=== PATIENT | male | born 2000 | race Two or more races ===

== ENCOUNTER 2023-09-14 00:07 | Emergency (ER) | payer OTHER ==
[2023-09-14 00:31] VITALS: RESP 18; TEMP 98.3; BMI 32.3
[2023-09-14] MEDS ORDERED: ACETAMINOPHEN INJECTION 100 ML IVPB ONE (01:29)
[2023-09-14 01:33] LABS: BASO % 0.4 % (0-2.0); EOS % 2.3 % (0-4.5); HEMATOCRIT 43.1 % (35.4-49); HEMOGLOBIN 14.5 GM/dL (11.7-16.9); LYMPH % 41.1 % (8-40); MCH 25.6 pg (25.7-33.7); MCHC 33.6 g/dl (32.0-35.9); MEAN CELL VOLUME 76.1 fl (80-96); MEAN PLT VOLUME 7.1 fl (7.5-11.1); NEUT % 48.2 % (42.8-82.8); PLATELET COUNT 260 10^3/uL (134-434); RBC 5.66 M/mm3 (4.00-5.60); RDW 14.6 % (11.9-15.9); WHITE BLOOD COUNT 4.7 K/mm3 (4.0-10.0)
[2023-09-14] MEDS: ACETAMINOPHEN 1000 MG/100 ML BAG IVPB ONE (01:33)
[2023-09-14] MEDS: LACTATED RINGERS SOLUTION 1000 ML INFUS.BAG IV ONE (01:36)
[2023-09-14 02:27] VITALS: BP 108/64; PULSE 84
[2023-09-14 03:22] LABS: POTASSIUM 4.2 mmol/L (3.5-5.1)
[2023-09-14 03:25] LABS: CALCIUM 8.9 mg/dL (8.5-10.1)
[2023-09-14 03:26] LABS: ALBUMIN 4.1 g/dl (3.4-5.0); BLOOD UREA NITROGEN 10.9 mg/dL (7-18)
[2023-09-14 03:29] LABS: CREATININE 0.9 mg/dL (0.55-1.3)
[2023-09-14 03:30] LABS: BILIRUBIN,TOTAL 0.9 mg/dL (0.2-1)
[2023-09-14 03:31] LABS: TOT PROT 7.4 g/dl (6.4-8.2)
[2023-09-14] MEDS ORDERED: FAMOTIDINE 20 MG/50 ML IVPB 20 MG/50 ML MG IVPB ONE (03:47)
[2023-09-14] MEDS ORDERED: MAG HYDROX/AL HYDROX/SIMETH 30 ML UNIT-DOSE CUP ONE (03:47)
[2023-09-14] MEDS: FAMOTIDINE 20 MG/50 ML IVPB 20 MG/50 ML MG IVPB ONE (03:47)
[2023-09-14] MEDS: MAG HYDROX/AL HYDROX/SIMETH 30 ML UNIT-DOSE CUP PO ONE (03:47)
== END 2023-09-14 04:03 | disposition home or self-care (01) ==
LOC: JER 00:07
PROC: 3E033GC Introduction of Other Therapeutic Substance into Peripheral Vein, Percutaneous Approach (ICD-10-PCS; principal; 2023-09-14)
PROC: 3E033NZ Introduction of Analgesics, Hypnotics, Sedatives into Peripheral Vein, Percutaneous Approach (ICD-10-PCS; 2023-09-14)
DX: K70.10 Alcoholic hepatitis without ascites (principal); R10.11 Right upper quadrant pain; R11.2 Nausea with vomiting, unspecified
CPT/HCPCS: 36415; 80053; 83690; 85025; 99284-25; J0131